=== PATIENT | male | born 1955 | race Caucasian/White ===

== ENCOUNTER 2024-11-05 04:50 | Emergency (ER) | payer OTHER | END 2024-11-05 06:07 | disposition home or self-care (01) | LOC: JP.ED 04:50 | DX: M76.891 Other specified enthesopathies of right lower limb, excluding foot (principal); I10 Essential (primary) hypertension; Z79.899 Other long term (current) drug therapy | CPT/HCPCS: 73502; 99283; A9270 ==

== ENCOUNTER 2025-02-17 02:39 | Emergency (ER) | payer OTHER | END 2025-02-17 03:57 | disposition home or self-care (01) | LOC: JP.ED 02:39 | DX: S46.001A Unspecified injury of muscle(s) and tendon(s) of the rotator cuff of right shoulder, initial encounter (principal); S46.201A Unspecified injury of muscle, fascia and tendon of other parts of biceps, right arm, initial encounter; I10 Essential (primary) hypertension; Z79.899 Other long term (current) drug therapy; Z86.16 Personal history of COVID-19; W19.XXXA Unspecified fall, initial encounter | CPT/HCPCS: 73030; 99283; A9270 ==